=== PATIENT | male | born 1965 | race Caucasian/White ===

== ENCOUNTER → 2021-01-13 | Outpatient (CLI) | payer BC | LOC: M.RAD 16:55 | PROVIDERS: ATTEND Internal Medicine | DX: M25.512 Pain in left shoulder (principal) ==

== ENCOUNTER 2021-03-21 20:53 | Emergency (ER) | payer BC ==
[~2021-03-21] VITALS: Ht 177.8 cm; Wt 84.8 kg
[2021-03-21] MEDS ORDERED: PROZAC (21:04)
[2021-03-21] MEDS ORDERED: LAMOTRIGINE (21:04)
[2021-03-21] MEDS ORDERED: [UNRECOGNIZED DRUG - OTHER] (21:05)
[2021-03-21 21:52] LABS: ABSOLUTE BASOPHILS 0.1 thou/uL (0.0-0.2); ABSOLUTE EOSINOPHILS 0.1 thou/uL (0.0-0.7); ABSOLUTE LYMPHOCYTES 1.3 thou/uL (0.8-5.3); ABSOLUTE MONOCYTES 0.8 thou/uL (0.0-1.2); BASOPHILS 1.2 %; EOSINOPHILS 1.6 %; HEMATOCRIT 47.8 % (42.0-52.0); HEMOGLOBIN 15.7 gm/dL (14.0-18.0); LYMPHOCYTES 20.4 %; MCH 28.7 pg (26.0-34.0); MCHC 32.8 g/dL (28.0-37.0); MCV 87.6 fL (80.0-100.0); MONOCYTES 13.1 %; NUCLEATED RBCS 0 /100WBC; PLATELET COUNT* 250 thou/uL (150-400); POLYS 63.7 %; RBC 5.46 mil/uL (4.50-6.00); RDW-CV 14.6 % (10.5-14.5); WBC 6.3 thou/uL (4.0-11.0)
[2021-03-21 21:57] LABS: CALCIUM 9.5 mg/dL (8.5-10.1); CREATININE 1.1 mg/dL (0.6-1.3); POTASSIUM 3.5 mmol/L (3.5-5.1)
[2021-03-21 22:08] LABS: APTT 24.2 Seconds (25.0-31.3)
[2021-03-21 22:09] LABS: ALBUMIN 4.4 g/dL (3.4-5.0); TOTAL BILIRUBIN 0.8 mg/dL (<0.1-1.0); TOTAL PROTEIN 7.5 g/dL (6.4-8.2)
[2021-03-21 22:47] LABS: URINE BILIRUBIN NEGATIVE (Negative); URINE BLOOD NEGATIVE (Negative); URINE CLARITY CLEAR; URINE COLOR YELLOW; URINE GLUCOSE-RANDOM NEGATIVE (Negative); URINE LEUKOCYTES-REFLEX NEGATIVE (Negative); URINE NITRITE-REFLEX NEGATIVE (Negative); URINE PROTEIN NEGATIVE (Negative)
[2021-03-21 22:49] LABS: ACETEST (KETONE CONFIRMATORY) Negative (Negative); URINE KETONES 3+ (Negative)
[2021-03-21 22:53] LABS: AMP/METHAMP Negative (Negative); BARBITURATES Negative (Negative); BENZODIAZEPINES Negative (Negative); COCAINE Negative (Negative); METHADONE Negative (Negative); OPIATES Negative (Negative); PCP Negative (Negative); THC POSITIVE (Negative)
[2021-03-22 01:36] VITALS: BP 121/72
--- NOTE | 2021-03-22 09:53 | EKG ---
[place] [address] ELECTROCARDIOGRAM REPORT Name: YAMIL BRAND Room: [facility]#: [id number] Admission: 03/21/21 Attend Phys: Discharge: 03/22/21 Date of : 69 Date of Service: 03/21/212057 Report #: [id number] THIS REPORT FOR: //name// [facility] ED Test Date: 2021-03-21 Test Time: 20:58:48 Pat Name: YAMIL BRAND Department: Room: Gender: Stock Sorter: [place] : 1965 Requested By: Sandy Terrazas Order Number: [id number] MD: Yamil Walter Measurements Intervals [place] Rate: 103 P: 41 MN: 147 QRS: 39 QRSD: 89 T: 47 QT: 351 QTc: 460 Interpretive Statements Sinus tachycardia No previous ECG available for comparison Electronically Signed On 03-22-2021 9:53:03 CDT by Yamil Walter [email or web address] <ELECTRONICALLY SIGNED> By: Yamil Walter MD, [facility] 03/22/2153 57 57 Yamil Walter MD, FACC /EPI
== END 2021-03-22 01:37 | disposition home or self-care (01) ==
LOC: M.ERS 20:53
PROVIDERS: Personal Emergency Response Attendant
DX: E86.0 Dehydration (principal); F41.1 Generalized anxiety disorder; F43.0 Acute stress reaction; R25.2 Cramp and spasm; Z79.899 Other long term (current) drug therapy